=== PATIENT | male | born 1990 | race African-American/Black ===

== ENCOUNTER 2023-10-31 06:25 | Emergency (ER) | payer SELFPAY ==
[~2023-10-31] VITALS: Ht 167.6 cm; Wt 77.0 kg
[2023-10-31 06:27] VITALS: O2SAT 99
[2023-10-31] MEDS: OLANZAPINE 10 MG/VIAL IM ONE (08:00)
[2023-10-31] MEDS: LORAZEPAM 2MG/ML INJ IM ONE (08:00)
[2023-10-31 10:03] LABS: EOSINOPHILS % 0.7 % (0.0-5.0)
[2023-10-31 10:09] LABS: BASOPHILS % 0.9 % (0.0-2.0); DIFFERENTIAL COMMENT 1; HEMATOCRIT. 43.5 % (42.0-52.0); HEMOGLOBIN. 15.3 g/dL (14.0-18.0); LYMPHOCYTES % 25.7 % (20.0-50.0); MEAN CORPUSCULAR HGB CONC 35.1 g/dL (31.0-37.0); MEAN CORPUSCULAR VOLUME 91.3 fL (80.0-94.0); MEAN PLATELET VOLUME 6.8 fl (7.4-10.4); MONOCYTES % 6.4 % (2.0-8.0); NEUTROPHILS % 66.3 % (40.0-76.0); PLATELET 351 x1000/uL (130-400); RED BLOOD CELL COUNT 4.77 mill/uL (4.7-6.1); WHITE BLOOD COUNT 11.3 x1000/uL (4.5-11.0)
[2023-10-31 10:19] LABS: CHLORIDE 106 mEq/L (98-107); SODIUM 142 mEq/L (136-145)
[2023-10-31 10:20] LABS: CALCIUM 8.9 mg/dL (8.7-10.4); CARBON DIOXIDE 22 mEq/L (21-32)
[2023-10-31 10:25] LABS: CREATININE 0.7 mg/dL (0.6-1.3); ETHANOL BLOOD 131 mg/dL (<10); GLUCOSE 104 mg/dL (70-105); UREA NITROGEN BLOOD 10 mg/dL (9-23)
[2023-10-31 10:29] LABS: POTASSIUM 2.7 mEq/L (3.5-5.1)
[2023-10-31] MEDS: POTASSIUM CHLORIDE 20MEQ TABLET SR PO NR (15:15)
[2023-10-31] MEDS: POTASSIUM CHLORIDE 20MEQ/PACKET PO ONE (19:20)
[2023-11-01 10:55] VITALS: BP 120/86; PULSE 78; RESP 18; TEMP 36.78072; O2SAT 100
== END 2023-11-01 11:18 | disposition home or self-care (01) ==
LOC: ER 06:25
DX: R46.2 Strange and inexplicable behavior (principal)
CPT/HCPCS: 80048; 80320; 85025; 36415; 93005; 96372; 99285; J3490; J2060; Z7610 ×2; G0480

== ENCOUNTER 2023-11-04 18:46 | Emergency (ER) | payer SELFPAY ==
[~2023-11-04] VITALS: Ht 167.6 cm; Wt 73.0 kg
[2023-11-04 20:20] VITALS: O2SAT 99
[2023-11-04] MEDS: HALOPERIDOL LACTATE 5MG/ML VIAL IM ONE (20:20)
[2023-11-04] MEDS: DIPHENHYDRAMINE 50MG/ML VIAL IM ONE (20:20)
[2023-11-04] MEDS: MIDAZOLAM HCL 2 MG/2 ML VIAL IM ONE (20:20)
[2023-11-04 21:12] LABS: BASOPHILS % 0.4 % (0.0-2.0); EOSINOPHILS % 0.8 % (0.0-5.0); HEMOGLOBIN. 14.8 g/dL (14.0-18.0); LYMPHOCYTES % 32.9 % (20.0-50.0); MEAN CORPUSCULAR HEMOGLOBIN 32.5 pg (28.0-32.0); MEAN CORPUSCULAR HGB CONC 35.2 g/dL (31.0-37.0); MEAN CORPUSCULAR VOLUME 92.4 fL (80.0-94.0); MEAN PLATELET VOLUME 6.9 fl (7.4-10.4); MONOCYTES % 4.4 % (2.0-8.0); NEUTROPHILS % 61.5 % (40.0-76.0); PLATELET 299 x1000/uL (130-400); RED BLOOD CELL COUNT 4.55 mill/uL (4.7-6.1); RED CELL DISTRIBUTION WIDTH 14.6 % (11.6-14.6); WHITE BLOOD COUNT 8.1 x1000/uL (4.5-11.0)
[2023-11-04 21:19] LABS: CHLORIDE 110 mEq/L (98-107); POTASSIUM 3.1 mEq/L (3.5-5.1); SODIUM 144 mEq/L (136-145)
[2023-11-04 21:20] LABS: CARBON DIOXIDE 24 mEq/L (21-32)
[2023-11-04 21:25] LABS: CREATININE 0.7 mg/dL (0.6-1.3); ETHANOL BLOOD 211 mg/dL (<10); GLUCOSE 87 mg/dL (70-105)
[2023-11-04 21:27] LABS: ACETAMINOPHEN < 2 ug/mL (10-30)
[2023-11-04 21:30] LABS: UREA NITROGEN BLOOD < 5 mg/dL (9-23)
[2023-11-04] MEDS: POTASSIUM CHLORIDE 20MEQ TABLET SR PO ONE (21:45)
[2023-11-05] MEDS: POTASSIUM CHLORIDE 20MEQ TABLET SR PO NR (01:10)
[2023-11-05 21:29] LABS: CLARITY URINE TURBID (CLEAR); COLOR URINE YELLOW (YELLOW); GLUCOSE URINE NEGATIVE (NEGATIVE); KETONES URINE NEGATIVE (NEGATIVE); LEUKOCYTE ESTERASE URINE NEGATIVE (NEGATIVE); NITRITE URINE NEGATIVE (NEGATIVE); OCCULT BLOOD URINE NEGATIVE (NEGATIVE); PH URINE 8.5 (4.5-8.0); PROTEIN URINE 2+ (NEGATIVE); SPECIFIC GRAVITY URINE 1.019 (1.005-1.030)
[2023-11-05 21:44] LABS: *AMPHETAMINES SCREEN URINE NEGATIVE (NEGATIVE); *BARBITURATES SCREEN URINE NEGATIVE (NEGATIVE); *BENZODIAZEPINES SCREEN URINE PRESUMPTIVE POSITIVE (NEGATIVE); *COCAINE SCREEN URINE PRESUMPTIVE POSITIVE (NEGATIVE); CANNABINOID URINE SCREEN PRESUMPTIVE POSITIVE (NEGATIVE); ECSTASY MDMA SCREEN URINE NEGATIVE (NEGATIVE); METHADONE URINE SCREEN NEGATIVE (NEGATIVE); OPIATES URINE SCREEN NEGATIVE (NEGATIVE); PHENCYCLIDINE URINE SCREEN NEGATIVE (NEGATIVE)
[2023-11-05 22:23] LABS: BACTERIA URINE 2+; RBC URINE NONE SEEN /hpf (0-2); SQUAMOUS EPITHELIAL CELL URINE FEW /lpf (RARE/1+); WBC URINE 0-2 /hpf (0-2)
[2023-11-06 20:27] VITALS: BP 126/85; PULSE 56; RESP 18; TEMP 36.50292; O2SAT 100
== END 2023-11-06 20:54 ==
LOC: ER 18:46
DX: R46.2 Strange and inexplicable behavior (principal); Z20.822 Contact with and (suspected) exposure to COVID-19
CPT/HCPCS: 80305; 80048; 81003; 80307; 80329; 80320; 85025; 36415; 96372; 99285; 87426; J1200; J1630; J2250; Z7610 ×2; G0480